=== PATIENT | male | born 1995 | race Caucasian/White ===

== ENCOUNTER 2023-08-23 16:11 | Emergency (ER) | payer BC, OTHER ==
[2023-08-23] MEDS ORDERED: MORPHINE SULFATE 4 MG/ML SYRINGE IVP STA (16:32)
[2023-08-23] MEDS ORDERED: IBUPROFEN 800 MG TAB PO STA (16:32)
[2023-08-23] MEDS ORDERED: MORPHINE SULFATE 4 MG/ML SYRINGE IM STA (16:46)
[2023-08-23] MEDS ORDERED: HYDROmorphone 1 MG/ML 1 ML SYRINGE IVP STA (17:22)
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
[2023-08-23 18:32] VITALS: RESP 18
[2023-08-23 18:53] VITALS: BP 138/72; PULSE 80; TEMP 98.1
== END 2023-08-23 18:41 | disposition home or self-care (01) ==
LOC: EC 16:11
DX: S42.352A Displaced comminuted fracture of shaft of humerus, left arm, initial encounter for closed fracture (principal); F12.90 Cannabis use, unspecified, uncomplicated; W05.2XXA Fall from non-moving motorized mobility scooter, initial encounter; Y93.55 Activity, bike riding
CPT/HCPCS: 73030; 73060; 73080; 29105; 99284; 96374; 96372; J2270; J1170